=== PATIENT | female | born 1965 | race American Indian/Alaskan Native ===

== ENCOUNTER 2019-06-13 09:59 | Day surgery (SDC) | payer OTHER ==
--- NOTE | 2019-06-13 10:35 | Anesthesia Consultation ---
Anesthesia Consult and Med Hx Date of service: 06/13/19 - Airway Anesthetic Teeth Evaluation: Crowns ROM Head & Neck: Adequate Mental/Hyoid Distance: Adequate Mallampati Class: Class I Intubation Access Assessment: Good - Pulmonary Exam CTA: Yes - Cardiac Exam Cardiac Exam: RRR - Pre-Operative Health Status ASA Pre-Surgery Classification: ASA2 Proposed Anesthetic Plan: MAC - Pulmonary Hx Smoking: No Hx Respiratory Symptoms: No - Cardiovascular System Hx Hypertension: No - Central Nervous System Hx Neuromuscular Disorder: No - Gastrointestinal Hx Gastroesophageal Reflux Disease: No - Endocrine Hx Renal Disease: No Hx Thyroid Disease: No - Other Systems Hx Alcohol Use: Yes (Occasionally) Hx Obesity: No - Additional Comments Anesthesia Medical History Comments: Patient denied previous anesthesia complications.
--- NOTE | 2019-06-13 10:36 | Anesthesia Day of Surgery ---
Anesthesia Day of Surgery - Day of Surgery Patient Examined: Yes Patient H&P Reviewed: Yes Patient is NPO: Yes
[2019-06-13] MEDS ORDERED: LIDOCAINE MPF (2%) 20 MG/1 ML VIAL 5 ML ONE (10:41)
[2019-06-13] MEDS ORDERED: SODIUM CHLORIDE 0.9% 1000 ML 1,000 ML IV SCH (11:00)
[2019-06-13] MEDS ORDERED: PROPOFOL 200 MG/20 ML VIAL IV ONE ×3 (11:15→12:13)
--- NOTE | 2019-06-13 12:11 | Operative Report ---
Operative Report Operative Report: Procedure: Colonoscopy with multiple snare polypectomies, multiple hot biopsy polypectomies, multiple polyp ablations. Attending physician: Matt Elena M.D. Alignment Mechanic: Matt Elena M.D. Indication: Patient is a 54-year-old female who presents for screening colonoscopy. She has a past history of colon polyps This colonoscopy serves to evaluate patient so that treatment may be directed based on the findings. Consent: Informed consent was obtained after advising the patient and family regarding nature of this procedure, its indications, potential benefits as well as possible complications including but not limited to bleeding perforation and adverse reaction to medication, infection as well as other cardiopulmonary complications. An informed written and verbal consent was then obtained after due opportunity was provided for questions and answers. Monitoring: Patient was monitored continuously with pulse oximetry and electrocardiographic recordings as well as blood pressure recordings. Vital signs remained stable throughout this procedure with no untoward events. Preoperative assessment: Patient was assessed immediately prior to this procedure for capacity to tolerate monitored anesthesia care and moderate sedation as well as general anesthesia. Patient's ASA classification is 2, Mallampati class is 2, Hyomental distance is 3. Instrument: Olympus video colonoscope.: CF-HQ 190L Medications: Propofol given intravenously in divided doses. For details please refer to anesthesia records. Description of procedure: Patient was placed in the left lateral decubitus position after achieving sedation, a digital rectal examination was performed following which the colonoscope was introduced into the anal verge and advanced to the cecum which was identified by the cecal valve, the appendiceal orifice, as well as by the cecal strap and direct transillumination. The colonoscope was subsequently withdrawn with careful inspection of all mucosal surfaces. Patient tolerated this procedure well and was subsequently taken to the recovery room. The following findings were noted. Findings: The Nitro prep scale score was 6. Patient was deemed to have an adequate colonoscopic preparation. The cecum was normal. In the proximal ascending colon, patient had 3 sessile polyps. The largest polyp was about 1 cm. 2 other polyps measuring approximately 8 mm each. All polyps are removed by snare polypectomy and retrieved. One of the polyp bases was ablated. The rest of the ascending colon was normal. In the transverse colon, patient had 2 diminutive polyps that were removed by hot biopsy polypectomy and retrieved. A diminutive flat polyp was ablated. The descending colon was normal. In the sigmoid colon, patient had multiple diminutive polyps that we ablated. Patient also had multiple diminutive polyps that were removed by hot biopsy polypectomy and retrieved. The rectum was normal. On the retroflexed view of the anal verge, patient had internal hemorrhoids. Impression: Ascending colon polyps status post snare polypectomy . Transverse colon polyps status post hot biopsy polypectomy Transverse colon polyp status post ablation Multiple sigmoid colon polyps status post ablation Multiple sigmoid colon polyps status post hot biopsy polypectomy. Internal hemorrhoids. Plan: Follow pathology report. High-fiber diet. Consider repeat colonoscopy in 3 years.
--- NOTE | 2019-06-13 12:12 | Discharge Summary ---
Short Stay Discharge Plan Activity: advance as tolerated, no driving until cleared by PCP Weight Bearing Status: Weight Bear as Tolerated Diet: regular Additional Instructions: Post Sedation D/C Instructions When you return home you may resume your regular diet unless otherwise directed. -Go directly home from the hospital and rest quietly. You may resume normal activities tomorrow. -Do NOT drive, return to work, operate any machinery or make any important personal or business decisions today. -Do NOT drink any alcohol or take nerve or sleeping drugs. They add to the effects of the medicine still present in your body. -NO ASPIRIN OR NSAIDS FOR THE NEXT 5 DAYS -FOLLOW UP WITH DR. FRANCISCO IN THE NEXT 1-2 WEEKS FOR RESULTS FOR TODAY'S VISIT AND BIOPSY RESULTS Follow up with: [facility] [Primary Care Provider] - 7 Days
[2019-06-13 12:43] VITALS: BP 100/69
--- NOTE | 2019-06-14 08:21 | Post Anesthesia Evaluation ---
- Post Anesthesia Evaluation Patient Participated: Yes Airway Patent: Yes Stable Respiratory Function: Yes Nausea/Vomiting: No Temp > 96.8F: Yes Pain Manageable: Yes Adequeate Hydration: Yes Anesthesia Complications: No Block Receding Appropriately: Not Applicable Patient on Ventilator: No
== END 2019-06-13 10:00 | disposition home or self-care (01) ==
LOC: GIO 09:59
PROVIDERS: ATTEND Internal Medicine Gastroenterology
DX: Z12.11 Encounter for screening for malignant neoplasm of colon (principal); D12.2 Benign neoplasm of ascending colon; K64.8 Other hemorrhoids; Z86.010 Personal history of colon polyps; Z79.899 Other long term (current) drug therapy; Z88.0 Allergy status to penicillin; Z72.89 Other problems related to lifestyle; Z98.890 Other specified postprocedural states; Z86.2 Personal history of diseases of the blood and blood-forming organs and certain disorders involving the immune mechanism
CPT/HCPCS: 45384; 45385; 45388; 88305; J2704; J7030